=== PATIENT | female | born 1990 | race Asian ===

== ENCOUNTER 2017-09-28 13:30 | Emergency (ER) | END 2017-09-28 14:42 | disposition home or self-care (01) ==

== ENCOUNTER 2018-04-23 11:50 | Emergency (ER) | END 2018-04-23 14:39 | disposition home or self-care (01) ==

== ENCOUNTER 2018-11-23 10:16 | Emergency (ER) | payer BC ==
[~2018-11-23] VITALS: Ht 162.6 cm; Wt 70.4 kg
[~2018-11-23 10:16] MED LIST: ACET500C5 PO; ALBU8.5H8 INH; AZIT250T PO; BENZ-6 PO; CEPH-443 PO; IBUP800T48 PO; PRED20TA PO
[2018-11-23 10:19] VITALS: BP 129/76; PULSE 78; RESP 18; Ht 162.6 cm; Wt 70.4 kg
[2018-11-23] MEDS ORDERED: ACETAMINOPHEN 500 MG TAB PO STA (11:17)
[2018-11-23] MEDS ORDERED: ACET325T33 PO (12:02)
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
== END 2018-11-23 12:08 | disposition home or self-care (01) ==
LOC: FTE 10:16
DX: O99.89 Other specified diseases and conditions complicating pregnancy, childbirth and the puerperium (principal); M54.9 Dorsalgia, unspecified; Z3A.10 10 weeks gestation of pregnancy
CPT/HCPCS: 76801; 81003

== ENCOUNTER 2019-05-27 07:29 | Outpatient (CLI) | payer BC ==
[~2019-05-27] VITALS: Ht 162.6 cm; Wt 87.2 kg
[~2019-05-27 07:29] MED LIST changes: +ACET325T33 PO; +PNV11TAB PO
[2019-05-27 07:37] VITALS: Ht 162.6 cm; Wt 87.2 kg
[2019-05-27 07:38] VITALS: BP 132/69; PULSE 85; RESP 18
== END 2019-05-27 09:43 | disposition home or self-care (01) ==
LOC: OBT 07:29 → L-D 07:29 → OBT 09:43
PROVIDERS: ATTEND Obstetrics & Gynecology
DX: O26.843 Uterine size-date discrepancy, third trimester (principal); Z3A.37 37 weeks gestation of pregnancy
CPT/HCPCS: 76815; 76818; G0463

== ENCOUNTER 2019-06-03 06:05 | Inpatient (IN) | payer BC ==
[~2019-06-03] VITALS: Ht 162.6 cm; Wt 87.5 kg
[~2019-06-03 06:05] MED LIST changes: -ACET325T33 PO; -ACET500C5 PO; -ALBU8.5H8 INH; -AZIT250T PO; -BENZ-6 PO; -CEPH-443 PO; -IBUP800T48 PO; -PRED20TA PO
[2019-06-03 06:31] VITALS: Ht 162.6 cm; Wt 87.5 kg
[2019-06-03 06:33] VITALS: BP 121/74; PULSE 96; RESP 18
[2019-06-03] MEDS ORDERED: MISOPROSTOL 200 MCG TAB PR PRN (10:30)
[2019-06-03] MEDS ORDERED: OXYTOCIN 30 UNITS/LR 500 ML IV PRN (10:30)
[2019-06-03] MEDS ORDERED: CARBOPROST 250 MCG INJ IM PRN (10:30)
[2019-06-03] MEDS ORDERED: METHYLERGONOVINE 0.2 MG INJ IM PRN (10:30)
[2019-06-03] MEDS ORDERED: OXYTOCIN 30 UNITS/LR 500 ML IV SCH ×3 (10:30→15:30)
[2019-06-03] MEDS ORDERED: BUTORPHANOL 2 MG INJ IV PRN ×2 (10:30)
[2019-06-03] MEDS ORDERED: LIDOCAINE 1% (MPF) 30 ML INJ INJ PRN (10:30)
[2019-06-03] MEDS: LACTATED RINGER'S 1,000 ML IV SCH ×2 (12:36→18:54)
[2019-06-04] MEDS: LACTATED RINGER'S 1,000 ML IV SCH ×3 (04:41→18:10)
[2019-06-04] MEDS ORDERED: FENTAnyl 2MCG/ML-ROPIV 0.2% 100 ML ONE (10:45)
[2019-06-04] MEDS ORDERED: LACTATED RINGER'S 1,000 ML IV PRN (10:55)
[2019-06-04] MEDS ORDERED: MINERAL OIL LIGHT 10 ML VIAL TOP ONE (11:00)
[2019-06-04] MEDS ORDERED: IBUPROFEN 600 MG TAB PO PRN (11:00)
[2019-06-04] MEDS ORDERED: DIPHENHYDRAMINE 50 MG INJ IV PRN ×2 (11:30→12:00)
[2019-06-04] MEDS ORDERED: TRIMETHOBENZAMIDE 100 MG/ML VIAL IM PRN ×2 (11:30→12:00)
[2019-06-04] MEDS ORDERED: NALOXONE (0.4 MG/ML) INJ IV PRN ×2 (11:30→12:00)
[2019-06-04] MEDS ORDERED: ONDANSETRON 4 MG INJ IV PRN ×3 (11:30→19:00)
[2019-06-04] MEDS ORDERED: KETOROLAC 30 MG INJ IV PRN (11:30)
[2019-06-04] MEDS ORDERED: FENTAnyl 2MCG/ML-ROPIV 0.2% 100 ML BAG EPI SCH ×2 (11:30→12:00)
[2019-06-04] MEDS ORDERED: HYDROmorphONE 0.5 MG/0.5 ML SYG IV PRN ×2 (11:30)
[2019-06-04] MEDS ORDERED: OXYTOCIN 30 UNITS/LR 500 ML IV SCH (18:35)
[2019-06-04] MEDS ORDERED: LANOLIN HPA 1 PKT TOP PRN (19:00)
[2019-06-04] MEDS ORDERED: HYDROCODONE/APAP (5/325) TAB PO PRN ×2 (19:00)
[2019-06-04] MEDS ORDERED: MAGNESIUM HYDROXIDE 30ML CUP PO PRN (19:00)
[2019-06-04] MEDS ORDERED: NACL 0.9% 3 ML SYG IV SCH (19:00)
[2019-06-04] MEDS ORDERED: DIPHENHYDRAMINE 25 MG CAP PO PRN (19:00)
[2019-06-04] MEDS ORDERED: CARBOPROST 250 MCG INJ IM PRN (19:00)
[2019-06-04] MEDS ORDERED: SENNA/DOCUSATE NA (8.6MG/50MG) TAB PO PRN (19:00)
[2019-06-04] MEDS ORDERED: MISOPROSTOL 200 MCG TAB PR PRN (19:00)
[2019-06-04] MEDS ORDERED: OXYTOCIN 30 UNITS/LR 500 ML IV PRN (19:00)
[2019-06-04] MEDS ORDERED: METHYLERGONOVINE 0.2 MG INJ IM PRN (19:00)
[2019-06-04] MEDS ORDERED: ZOLPIDEM 5 MG TAB PO PRN (19:00)
[2019-06-04] MEDS ORDERED: ACETAMINOPHEN 325 MG TAB PO PRN (19:00)
[2019-06-04] MEDS ORDERED: WITCH HAZEL/GLYCERIN PAD PR PRN (19:00)
[2019-06-04] MEDS ORDERED: BENZOCAINE 20% 56 ML SPRAY TOP PRN ×2 (19:00)
[2019-06-04] MEDS: IBUPROFEN 600 MG TAB PO SCH ×2 (19:00→23:59)
[2019-06-04 20:10] VITALS: BP 112/69; PULSE 88; RESP 18
[2019-06-04 21:10] VITALS: BP 110/57; PULSE 82; RESP 19
[2019-06-05] VITALS: BP 105/69; PULSE 94; RESP 19
[2019-06-05] MEDS: LACTATED RINGER'S 1,000 ML IV SCH (02:10)
[2019-06-05 04:00] VITALS: BP 107/64; PULSE 84; RESP 18
[2019-06-05] MEDS: IBUPROFEN 600 MG TAB PO SCH ×4 (05:42→23:58)
[2019-06-05 08:30] VITALS: BP 104/64; PULSE 94; RESP 18
[2019-06-05 12:30] VITALS: BP 107/65; PULSE 91; RESP 18
[2019-06-05 15:40] VITALS: BP 104/73; PULSE 82; RESP 20
[2019-06-05 19:35] VITALS: BP 98/57; PULSE 65; RESP 18
[2019-06-06 04:20] VITALS: BP 104/64; PULSE 75; RESP 18
[2019-06-06] MEDS: IBUPROFEN 600 MG TAB PO SCH ×2 (06:48→12:43)
[2019-06-06 08:00] VITALS: BP 112/69; PULSE 68; RESP 17
[2019-06-06] MEDS ORDERED: MEASLES,MUMPS,RUBELLA VACCINE INJ SC* ONE (09:00)
[2019-06-06] MEDS ORDERED: DIPHTH/TET/ACEL PERTUSS (ADULT) 0.5 ML VIAL IM* ONE (09:00)
== END 2019-06-06 13:34 | disposition home or self-care (01) | DRG 807 ==
LOC: L-D 06:05 → OBT 06:05 → L-D 10:28 → PP1 06-04 20:14
PROVIDERS: ADMIT Obstetrics & Gynecology; ATTEND Obstetrics & Gynecology
PROC: 10E0XZZ Delivery of Products of Conception, External Approach (ICD-10-PCS; principal; 2019-06-04)
PROC: 0KQM0ZZ Repair Perineum Muscle, Open Approach (ICD-10-PCS; 2019-06-04)
DX: O36.5930 Maternal care for other known or suspected poor fetal growth, third trimester, not applicable or unspecified (principal); Z37.0 Single live birth; Z3A.38 38 weeks gestation of pregnancy; O69.81X0 Labor and delivery complicated by cord around neck, without compression, not applicable or unspecified; O70.1 Second degree perineal laceration during delivery
CPT/HCPCS: 62322; 76816; 76818; 85025; 85610; 85730; 86592; 86850; 86900; 86901; 87340; 90715; G0463; J2590; J3010; J7120